=== PATIENT | male | born 1965 | race Caucasian/White ===

== ENCOUNTER 2017-10-16 21:34 | Emergency (ER) | payer OTHER ==
[~2017-10-16] VITALS: Ht 165.1 cm; Wt 90.3 kg
[2017-10-16 21:38] VITALS: BP 140/71; PULSE 76; RESP 14; TEMP 97.9; O2SAT 95
[2017-10-16] MEDS ORDERED: LISD50 PO (21:40)
[2017-10-16] MEDS ORDERED: LIDOCAINE 1%/EPINEPHrine 1:100,000 SOLN 20 ML VIAL INFIL ONE (22:00)
--- NOTE | 2017-10-16 22:32 | PD ---
HPI Chief Complaint: Laceration/Skin Injury Time Seen by Provider: 21:57 Travel History International Travel<30 days: No Contact w/Intl Traveler<30days: No Traveled to known affect area: No History of Present Illness HPI 51-year-old male complains of right forehead laceration. He accidentally walked into a glass door causing sudden onset bleeding and pain. Bleeding stopped. No loss of consciousness or fall or trauma otherwise. Location skin. Onset sudden. PFSH Past Medical History ADHD: Yes High Cholesterol: Yes Diminished Hearing: No Tetanus Vaccination: < 5 Years Influenza Vaccination: No Past Surgical History Tonsillectomy: Yes Social History Alcohol Use: Yes (SOCIALLY) Tobacco Use: No Substance Use: No Allergies-Medications (Allergen,Severity, Reaction): Coded Allergies: No Known Allergies (Unverified , 10/16/17) Reported Meds & Prescriptions Reported Meds & Active Scripts Active Reported Vyvanse (Lisdexamfetamine Dimesylate) 50 Mg Cap 50 Mg PO DAILY Review of Systems Eyes: No: Diploplia HENT: No: Vertigo Cardiovascular: No: Irregular Rhythm Respiratory: No: Wheezing Gastrointestinal: No: Diarrhea Physical Exam Narrative GENERAL: 51-year-old male well-nourished well-developed no acute distress Vital Signs Date Time Temp Pulse Resp B/P (MAP) Pulse Ox O2 Delivery O2 Flow Rate FiO2 10/16/17 21:38 97.9 76 14 140/71 (94) 95 SKIN: Warm and dry. There is a 2 cm laceration somewhat irregular shape involving the right forehead with minimal red blood. HEAD: Normocephalic. EYES: No scleral icterus. No injection or drainage. Muscles of facial expression are normal and symmetric [id number] suture. Saline NECK: Supple, trachea midline. No JVD or lymphadenopathy. CARDIOVASCULAR: Regular rate and rhythm without murmurs, gallops, or rubs. Data Data Last Documented VS Vital Signs Date Time Temp Pulse Resp B/P (MAP) Pulse Ox O2 Delivery O2 Flow Rate FiO2 10/16/17 21:38 97.9 76 14 140/71 (94) 95 Orders Orders Lidocai-Epi 1%-1:100,000 Inj (Xylocaine- (10/16/17 22:00) Ed Discharge Order (10/16/17 22:31) Ed Discharge Order (10/16/17 22:32) [facility] Medical Decision Making Medical Screen Exam Complete: Yes Emergency Medical Condition: Yes Medical Record Reviewed: Yes Differential Diagnosis Laceration, contusion, abrasion Narrative Course Laceration repaired by me Patient ready for discharge. Procedures Procedure Narrative LACERATION LOCATION: right forehead LENGTH: 2 cm NUMBER OF STITCHES/MARY: 6 REPAIR: The area of the laceration was prepped with Betadine and sterilely draped. The laceration was infiltrated with lidocaine with epinephrine. The wound was copiously irrigated and explored without evidence of foreign body, tendon injury or neurovascular injury. The wound was closed using 5-0 Ethilon. This was a single layer repair. A sterile dressing was applied. The patient was advised to keep the dressing clean and dry. Patient tolerated the procedure well. Diagnosis Primary Impression: Forehead laceration Qualified Codes: S01.81XA - Laceration without foreign body of other part of head, initial encounter Referrals: RETURN IN 7 DAYS FOR SUTURE REMOVAL Med/Other Pt SpecificInfo: No Change to Meds Disposition: 01 DISCHARGE HOME Condition: Stable Peter Zuñiga MD Oct 16, 2017 22:32
[2017-10-16 23:09] VITALS: BP 133/70
== END 2017-10-16 23:10 | disposition home or self-care (01) ==
LOC: PHED 21:34
DX: S01.81XA Laceration without foreign body of other part of head, initial encounter (principal); F90.9 Attention-deficit hyperactivity disorder, unspecified type; E78.00 Pure hypercholesterolemia, unspecified; W25.XXXA Contact with sharp glass, initial encounter; Y93.01 Activity, walking, marching and hiking; Z79.899 Other long term (current) drug therapy
CPT/HCPCS: 12011